=== PATIENT | male | born 1960 | race Caucasian/White ===

== ENCOUNTER 2023-01-06 15:24 | Emergency (ER) | payer BC, SELFPAY ==
[2023-01-06 15:26] VITALS: BP 170/92; PULSE 118; RESP 19; TEMP 37.2; O2SAT 98; BMI 31.5
--- NOTE | 2023-01-06 15:34 | HMH.EDGENADL ---
Discharge Plan Disposition Patient Disposition: Home, Self-Care Prescriptions Prescriptions: New rosuvastatin 5 mg tablet 5 mg PO DAILY 30 Days Qty: 30 0RF aspirin [Adult Aspirin Regimen] 81 mg tablet,delayed release (DR/EC) 81 mg PO DAILY 30 Days Qty: 30 0RF clopidogrel [Plavix] 75 mg tablet 75 mg PO DAILY 30 Days Qty: 30 0RF bisoprolol fumarate 5 mg tablet 5 mg PO DAILY 30 Days Qty: 30 0RF Referrals Follow up/Referrals: Adarsh Bashir MD [Staff Physician] - See instructions (carotid stenosis, per Dr Bashir 11amonday ) Provider,MD Ralph [Primary Care Provider] - See instructions Activity Restrictions/Add. Instructions Additional Instructions/Restrictions: Your symptoms today are most likely were secondary to compression neuropraxia using your crutches please mechanically offload those using significant cushioning or keeping your armpits away from the crutches when using them. However on your CT scans of the blood vessels in your head and neck there is severe internal carotid artery stenosis bilaterally noted. It is unclear whether not these are associated with any type of causation of your symptoms today therefore in an abundance of caution we will treat as if this was a TIA with dual antiplatelet therapy with aspirin and Plavix also will add a statin and a beta-jessica onto your medication therapy. I discussed the case with Dr. Bashir her faith doctor who will see you at 11 AM at his clinic on Monday. You likely will need referral to a neurosurgeon for further discussion but this will be done in consultation with Dr. Bashir as he will manage this from here on out. If you have any recurrence of neurologic symptoms please go to the nearest emergency department. Clinical Impressions Clinical Impression: Carotid artery stenosis, Arm paresthesia, left, Neurapraxia of left upper extremity Discharge ED Provider: Josh Truong General Adult HPI General Chief complaint: Neuro Symptoms/Deficit Stated complaint: post op 01/03 knee surgery Time Seen by Provider: 01/06/23 15:34 History of Present Illness HPI narrative: Patient is a 62-year-old recently status post total knee replacement done in [facility] but has had significant side effects from the surgery that were out of proportion to total knee replacement that he had done in the past making him worried. States that he has had increased swelling of his left lower extremity that is been worse than his other leg that he experiences also has had some ecchymosis in the proximal thigh. Most concerning Augustine though he stated that he had some tingling around his lips and some paresthesias in his left upper extremities associated with some transient motor weakness that only lasted seconds. When asked when this happens it is only when he is compressing his axilla with his crutches and immediately upon stopping using crutches within a few seconds these paresthesias and weakness go away. He has not had any hyperventilating or panic attack episodes. Denies any chest pain or shortness of breath. Denies any history of DVT or PE. Related Data Previous Rx's Medication Instructions Recorded aspirin 81 mg tablet,delayed 81 mg PO DAILY 30 days #30 tabs 01/06/23 release (Adult Aspirin Regimen) bisoprolol fumarate 5 mg tablet 5 mg PO DAILY 30 days #30 tabs 01/06/23 clopidogrel 75 mg tablet (Plavix) 75 mg PO DAILY 30 days #30 tabs 01/06/23 rosuvastatin 5 mg tablet 5 mg PO DAILY 30 days #30 tabs 01/06/23 Allergies Allergy/AdvReac Type Severity Reaction Status Date / Time No Known Allergies Allergy Verified 01/23/18 15:19 [facility] Disclaimer: The information contained in this section may have been updated after the patient was seen, as this information can be updated by other users. Social History Smoking Status: Never smoker alcohol intake: current substance use type: denies use current occupational status: employed Travel in the last 8 weeks
--- NOTE | 2023-01-06 15:38 | PC.NURSE ---
Dr. Truong at [facility]
--- NOTE | 2023-01-06 15:49 | PC.NURSE ---
Spoke with Hilda in vascular lab regarding doppler order.
--- NOTE | 2023-01-06 15:50 | CT_ITS ---
PROCEDURE INFORMATION: Exam: CT Head Without Contrast Exam date and time: 01/06/2023 4:38 PM Age: 62 years old Clinical indication: Other: Lue numbnesss; Additional info: Lue numbess, transient, lip tingling TECHNIQUE: Imaging protocol: Computed tomography of the head without contrast. Radiation optimization: All CT scans at this facility use at least one of these dose optimization techniques: automated exposure control; mA and/or kV adjustment per patient size (includes targeted exams where dose is matched to clinical indication); or iterative reconstruction. REPORTING DATA: Count of CT and Cardiac NM exams in prior 12 months: This patient has received 0 known CTs and 0 known cardiac nuclear medicine studies in the 12 months prior to the current study. COMPARISON: No relevant prior studies available. FINDINGS: Brain: Mild periventricular white matter disease. There is no area of intraparenchymal or extra-axial hemorrhage present. There is no focal mass. There is no midline shift. The butler-white matter junction is intact. Cerebral ventricles: No ventriculomegaly. Paranasal sinuses: Visualized sinuses are unremarkable. No fluid levels. Mastoid air cells: Visualized mastoid air cells are well aerated. Bones/joints: Unremarkable. No acute fracture. Soft tissues: The soft tissues are unremarkable. IMPRESSION: 1. Mild periventricular white matter disease. 2. Otherwise unremarkable examination of the brain. There is no acute intracranial abnormality.
--- NOTE | 2023-01-06 15:50 | CT_ITS ---
PROCEDURE INFORMATION: Exam: CTA Head With Contrast, Arteriography Exam date and time: 01/06/2023 4:42 PM Age: 62 years old Clinical indication: Numbness; Additional info: Lue numbess, transient, lip tingling TECHNIQUE: Imaging protocol: Computed tomographic angiography of the head with contrast. Exam focused on the arteries. 3D rendering (Not supervised by radiologist): MIP and/or 3D reconstructed images were created by the technologist. Radiation optimization: All CT scans at this facility use at least one of these dose optimization techniques: automated exposure control; mA and/or kV adjustment per patient size (includes targeted exams where dose is matched to clinical indication); or iterative reconstruction. Contrast material: ISOVUE; Contrast volume: 100 ml; Contrast route: INTRAVENOUS (IV); REPORTING DATA: Count of CT and Cardiac NM exams in prior 12 months: This patient has received 0 known CTs and 0 known cardiac nuclear medicine studies in the 12 months prior to the current study. COMPARISON: CT HEAD/BRAIN WO CON 01/06/2023 4:38 PM FINDINGS: ANTERIOR CIRCULATION: Right internal carotid artery: Atherosclerotic disease within the clinoid segment of the right-sided internal carotid artery that results in stenosis measuring 70%. There is good distal flow. There is no aneurysm. Right middle cerebral artery: No occlusion or significant stenosis. No aneurysm. Right anterior cerebral artery: No occlusion or significant stenosis. No aneurysm. Left internal carotid artery: Intracranial segment is patent with no significant stenosis. No aneurysm. Left middle cerebral artery: No occlusion or significant stenosis. No aneurysm. Left anterior cerebral artery: No occlusion or significant stenosis. No aneurysm. POSTERIOR CIRCULATION: Right vertebral artery: No occlusion or significant stenosis. No aneurysm. Left vertebral artery: No occlusion or significant stenosis. No aneurysm. Basilar artery: Mild narrowing of the proximal basilar artery with stenosis measuring up to 60%. There is good distal flow. Right posterior cerebral artery: No occlusion or significant stenosis. No aneurysm. Left posterior cerebral artery: No occlusion or significant stenosis. No aneurysm. Brain: No definite mass, mass effect, or midline shift. Cerebral ventricles: No ventriculomegaly. Bones/joints: Unremarkable. No acute fracture. Soft tissues: Unremarkable. IMPRESSION: 1. Severe atherosclerotic disease within right-sided clinoid segment of the right-sided internal carotid artery that results in stenosis measuring 70%. 2. Mild narrowing of the proximal basilar artery with stenosis measuring up to 60%. There is good distal flow. 3. The remainder of the vascular structures are unremarkable. There is no other significant stenosis. There is no occlusion or aneurysm.
--- NOTE | 2023-01-06 15:50 | CT_ITS ---
PROCEDURE INFORMATION: Exam: CTA Neck With Contrast Exam date and time: 01/06/2023 4:42 PM Age: 62 years old Clinical indication: Numbness; Additional info: Lue numbess, transient, lip tingling TECHNIQUE: Imaging protocol: Computed tomographic angiography of the neck with contrast. 3D rendering (Not supervised by radiologist): MIP and/or 3D reconstructed images were created by the technologist. Radiation optimization: All CT scans at this facility use at least one of these dose optimization techniques: automated exposure control; mA and/or kV adjustment per patient size (includes targeted exams where dose is matched to clinical indication); or iterative reconstruction. Contrast material: ISOVUE; Contrast volume: 100 ml; Contrast route: INTRAVENOUS (IV); REPORTING DATA: Count of CT and Cardiac NM exams in prior 12 months: This patient has received 0 known CTs and 0 known cardiac nuclear medicine studies in the 12 months prior to the current study. COMPARISON: CT HEAD/BRAIN WO CON 01/06/2023 4:38 PM FINDINGS: Right common carotid artery: No stenosis. No dissection or occlusion. Right internal carotid artery: Severe atherosclerotic disease of the right sided internal carotid artery bulb with stenosis measuring 80%. There is good distal flow. Right external carotid artery: No occlusion or stenosis of the origin. Left common carotid artery: No stenosis. No dissection or occlusion. Left internal carotid artery: Atherosclerotic disease of the left sided internal carotid bulb the results in stenosis measuring 70%. There is good distal flow. Left external carotid artery: No occlusion or stenosis of the origin. Right vertebral artery: No stenosis. No dissection or occlusion. Left vertebral artery: No stenosis. No dissection or occlusion. Soft tissues: Normal. No significant soft tissue swelling. Bones/joints: No acute fracture. IMPRESSION: 1. Severe atherosclerotic disease of the right sided internal carotid artery bulb with stenosis measuring 80%. There is good distal flow. 2. Atherosclerotic disease of the left sided internal carotid bulb the results in stenosis measuring 70%. There is good distal flow. 3. The remainder of the vascular structures are unremarkable. There is no other significant stenosis. There is no occlusion or aneurysm. REFERENCES: NASCET CRITERIA. The degree of stenosis in the cervical segment of the internal carotid artery is based on NASCET criteria. Normal is no stenosis. Mild is less than 50% stenosis. Moderate is 50-69% stenosis. Severe is 70% to 99% stenosis. Total occlusion is no detectable patent lumen.
--- NOTE | 2023-01-06 15:50 | CA_ITS ---
FINAL REPORT TECHNIQUE: Ultrasound images of the deep venous system were obtained from the left groin to the calf veins. CLINICAL HISTORY: recent surgery swelling Left knee swelling s/p Left total knee replacement rajwinder 3 days ago FINDINGS: The deep venous system is normally compressible. Normal flow is identified. IMPRESSION: No evidence of left lower extremity DVT. Reviewed, Interpreted and Dictated by Papo Thurman MD Transcribed by Nyla Dutton Authenticated and [facility]
--- NOTE | 2023-01-06 15:56 | ECG_ITS ---
APPROVED REPORT Exam: Resting ECG HR:103 bpm ECG Measurements Heart Rate 103 AXES VA 187 P 32 QRSd 94 QRS 48 QT 315 T 41 QTc 375 Conclusion SINUS TACHYCARDIA ABNORMAL RHYTHM ECG UNCONFIRMED REPORT Electronically signed by : Sage Loo MD 01/07/2023 06:59:23
--- NOTE | 2023-01-06 15:58 | PC.NURSE ---
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
[2023-01-06 16:00] VITALS: BP 176/93; PULSE 96; RESP 15; O2SAT 99
[2023-01-06 16:10] LABS: Basophils % 0.1 % (0.1-2.0); Eosinophils % 0.3 % (0.1-12.0); Hematocrit 34.8 % (42.0-52.0); Hemoglobin 11.6 g/dL (14.1-18.0); Lymphocytes # 1.3 K/mm3 (0.7-4.5); Lymphocytes % 13.8 % (10-50); Mean Corpuscular HGB Conc 33.3 g/dL (31.8-35.4); Mean Corpuscular Hemoglobin 30.8 pg (27.0-31.2); Mean Corpuscular Volume 92.4 fl (80-94); Mean Platelet Volume 8.3 fl (7.4-10.4); Monocytes # 0.7 K/mm3 (0.1-1.0); Monocytes % 7.2 % (1.7-9.3); Neutrophils # 7.6 K/mm3 (1.8-7.8); Neutrophils % 78.6 % (37.0-80.0); Platelet Count 166 K/mm3 (142-424); Red Blood Count 3.77 M/mm3 (4.60-6.20); Red Cell Distribution Width 12.8 % (11.5-17.5); White Blood Count 9.7 K/mm3 (4.8-10.8)
[2023-01-06 16:14] LABS: Chloride 97 mmol/L (98-107); Potassium 3.7 mmoL/L (3.5-5.1); Sodium 134 mmol/L (136-145)
[2023-01-06 16:17] LABS: Alanine Aminotransferase 27 U/L (12-78); Albumin Level 3.7 g/dl (3.5-5.0); Albumin/Globulin Ratio 1.1 (1.1-1.8); Alkaline Phosphatase 60 U/L (38-126); Anion Gap 10.7 mEq/L (5-15); Aspartate Amino Transferase 36 U/L (17-59); Bilirubin,Total 0.6 mg/dl (0.2-1.3); Blood Urea Nitrogen 11 mg/dl (9-20); Carbon Dioxide 30 mmol/L (22.0-30.0); Creatinine Clearance Estimated 105 mL/min (50-200); Estimated Glomerular Filt Rate 136 ml/min (>60); GFR (African American) 164 ML/MIN (>60); Globulin 3.3 g/dL (1.3-3.2)
[2023-01-06 16:18] LABS: Calcium 8.4 mg/dl (8.4-10.2); Glucose 150 mg/dl (74-100)
--- NOTE | 2023-01-06 16:23 | PC.NURSE ---
patient given a urinal
--- NOTE | 2023-01-06 16:34 | PC.NURSE ---
PT GONE TO CT
[2023-01-06 17:01] VITALS: BP 166/88; PULSE 98; O2SAT 98
[2023-01-06 17:31] VITALS: BP 154/70; PULSE 96; O2SAT 97
[2023-01-06 18:01] VITALS: BP 215/103; PULSE 94; RESP 19; O2SAT 97
[2023-01-06 18:30] VITALS: BP 165/81; PULSE 102; RESP 20; TEMP 37.2; O2SAT 97
== END 2023-01-06 18:31 | disposition home or self-care (01) ==
PROVIDERS: Emergency Provider Student in an Organized Health Care Education/Training Program
DX: I65.21 Occlusion and stenosis of right carotid artery (principal); S44.92XA Injury of unspecified nerve at shoulder and upper arm level, left arm, initial encounter; M96.89 Other intraoperative and postprocedural complications and disorders of the musculoskeletal system; X58.XXXA Exposure to other specified factors, initial encounter; Y83.4 Other reconstructive surgery as the cause of abnormal reaction of the patient, or of later complication, without mention of misadventure at the time of the procedure
CPT/HCPCS: 70450; 70496; 70498; 80053; 85025; 93005; 93971; 96360; 99285; Q9967

== ENCOUNTER 2023-04-04 17:00 | Outpatient (RCR) | payer BC, SELFPAY ==
--- NOTE | 2023-01-04 10:26 | HMH.PTOPEV ---
PT Outpatient Evaluation Rehab PT Outpatient Evaluation Start: 01/04/23 09:33 Freq: Status: Active Protocol: Document 01/04/23 09:33 BONNY (Rec: 01/04/23 10:26 BONNY [id number]) E-signed By William Amador, PT Outpatient Therapy Subjective History Subjective History Pt presents s/p left TKA, sx. on 01/03/23. Pt reports global 'loopiness, dizziness, I feel really loosey goosey, and this time my thigh is really sore.' Pt reports having right TKA in 2014, 'and I don't remember it hurting this bad.' Pt reports left knee tightness, swelling, pain, and weakness. Chief Complaint Pain,Stiff,Swelling,Weakness Symptom Type Ache,Throb,Sharp,Dull Symptoms Relieved By Ice,OTC Meds,Prescription Meds Symptoms Aggravated By Standing,Walking Prior Functional Limitations None Current Functional Limitations Housework,Standing,Squatting, Walking,Stairs Symptom Description Constant but Variable Level of pain today (0-10) 8 Pain scale - at its best (0-10) 8 Pain scale - at its worst (0-10) 9 Hip/Knee Eval Gait Observation General Gait Pattern Observation Antalgic Gait,Wide Based Gait Assistive Device Assistive Devices Axillary Crutches Palpation Tenderness left Knee Palpation Finding Tenderness Knee Palpation Overall Comment 3-4/4 MMT Hip Flexion Strength Grade 4- Good- Hip Abduction Strength Grade 3+ Fair+ Hip Adduction Strength Grade 4- Good- Hip Extension Strength Grade 4- Good- Knee Extension Strength Grade 4- Good- Knee Flexion Strength Grade 4- Good- ROM Knee Flexion Active Range of Motion ( 3-105 degrees) Knee ROM Limitations Soft Tissue Tightness,Pain Outpatient Therapy Assessment Impairments Problems/Impairmments Palpation Tenderness,Impaired Range of Motion,Impaired Strength,Impaired Gait Pattern ,Impaired Walking,Impaired Standing,Impaired Household Care,Impaired Stair Climbing, Subjective C/O Pain,Impaired Self Care/Self Management Prognosis Rehab Potential Good Clinical Impression Consistent with Diagnosis Yes Short Term Goals Number of Weeks 4 Decreased Palpation Tenderness Yes: 1-2/4 left knee Increase Range of Motion Yes: 0
--- NOTE | 2023-02-06 12:54 | HMH.RHREAS ---
Rehab Reassessment Rehab OP Re-assessment Start: 01/04/23 09:33 Freq: Status: Active Protocol: Document 02/06/23 12:48 JADYN (Rec: 02/06/23 12:54 PHOANGEL [id number]) E-signed By Gilson Duenas, PT Rehab Re-assessment Subjective Subjective Pt reports current pain 3/10 in the L knee, at worst pain is 6/10. He remains concerned with edema in and around his L knee. Feels much better overall with ambulation ability, but wants to improve even more. Objective Objective Notes L Knee AROM: 0-123 L Knee PRM: 0-126 MMT L LE: grossly 4+/5 throughout Ambulation: Minimal antalgic gait pattern during stance phase of gait on the L LE, no use of AD at this time. Assessment Progress Assessment Progressing as Expected Assessment Notes Pt has shown significant improvements in strength and ROM of the L LE. He continues to have decreased ability with squatting, gait on an uneven surface, and overall strength of the L LE. ROM is WFL at this time, but pt goal is to increase even more to WNL. He continues to need skilled intervention to return to prior level of function. Patient goals met ST,2,3,4,5,6,7,8 Goals Not Met LT,2,3,4,5,6,7,8,9,10,11 Revised Goals none Plan Plan Continue per initial POC. Frequency of Therapy 2 x/wk Duration of therapy 4 wks Time and Billing Re-Eval Time 16 Re-Eval Billing Units 1 PHYSICIAN CERTIFICATION: I certify the specified therapy services for Ramírez Knight are required, authorized, and reviewed every 30 days.
--- NOTE | 2023-03-07 11:25 | HMH.RHREAS ---
Rehab Reassessment Rehab OP Re-assessment Start: 01/04/23 09:33 Freq: Status: Active Protocol: Document 03/07/23 11:17 MATTIEHAWA (Rec: 03/07/23 11:25 BONNY [id number]) E-signed By William Amador, PT Rehab Re-assessment Subjective Subjective Pt reports lingering lateral aspect left knee pain/ discomfort anne-marie. at end ROM flx . Pt reports significant functional improvements since last reassess., including strength, gait pattern and endurance, and ROm. Objective Objective Notes AROM: LEFT KNEE FLX 0-131 MMT: LEFT HIP ABD 4-4+/5, L HIP EXT 4/5, L HIP ADD AND FLX 4+-5/5, L KNEE EXT 5/5, L HS 5/5 GAIT: SLIGHTLY FLXED(3-5) ON LLE DURING STANCE PHASE OF GAIT PATTERN-MILDLY ANTALGIC ON LLE TTP: LEFT KNEE 0/4 GLOBALLY Assessment Progress Assessment Progressing as Expected Assessment Notes SIGNFICANT IMPROVEMENTS IN STRENGTH, ROM, TTP Patient goals met ST,2,3,4,5,6,7,8 LT,2,5,6,7,8,9,10,11 Goals Not Met LTG'S 3,4 Plan Plan Pt to continue w/skilled P.T. to make further improvements in left knee gait and strength to allow for optimal function Frequency of Therapy 1-2X/WK Duration of therapy 2-4WKS Time and Billing Re-Eval Time 12 Re-Eval Billing Units 1 PHYSICIAN CERTIFICATION: I certify the specified therapy services for Ramírez Knight are required, authorized, and reviewed every 30 days.
== END 2023-04-04 17:05 | disposition home or self-care (01) ==
LOC: PT 17:00
PROVIDERS: Visit Provider Orthopaedic Surgery
DX: M25.562 Pain in left knee (principal); Z96.652 Presence of left artificial knee joint
CPT/HCPCS: 97010; 97014; 97016; 97110; 97140; 97163; 97164; 97530; 97535; G0283

== ENCOUNTER 2024-04-17 10:18 | Outpatient (CLI) | payer BC, SELFPAY ==
--- NOTE | 2024-04-17 10:45 | ECG_ITS ---
APPROVED REPORT Exam: Resting ECG HR:91 bpm ECG Measurements Heart Rate 91 AXES DE 170 P 47 QRSd 103 QRS 21 QT 326 T 47 QTc 374 Conclusion SINUS RHYTHM NORMAL ECG UNCONFIRMED REPORT Electronically signed by : Sage Loo MD 04/18/2024 17:17:25
[2024-04-17 11:01] LABS: Basophils % 0.6 % (0.1-2.0); Eosinophils % 0.2 % (0.1-12.0); Hematocrit 45.8 % (42.0-52.0); Hemoglobin 14.8 g/dL (14.1-18.0); Lymphocytes # 0.8 K/mm3 (0.7-4.5); Lymphocytes % 15.7 % (10-50); Mean Corpuscular HGB Conc 32.2 g/dL (31.8-35.4); Mean Corpuscular Hemoglobin 31.9 pg (27.0-31.2); Mean Corpuscular Volume 99.1 fl (80-94); Mean Platelet Volume 8.1 fl (7.4-10.4); Monocytes # 0.4 K/mm3 (0.1-1.0); Monocytes % 8.1 % (1.7-9.3); Neutrophils # 3.8 K/mm3 (1.8-7.8); Neutrophils % 75.5 % (37.0-80.0); Platelet Count 209 K/mm3 (142-424); Red Blood Count 4.62 M/mm3 (4.60-6.20); Red Cell Distribution Width 13.6 % (11.5-17.5)
[2024-04-17 11:15] LABS: Chloride 100 mmol/L (98-107); Sodium 135 mmol/L (136-145)
[2024-04-17 11:16] LABS: Potassium 4.2 mmoL/L (3.5-5.1)
[2024-04-17 11:18] LABS: Blood Urea Nitrogen 16 mg/dl (9-20); Estimated Glomerular Filt Rate 85 ml/min (>60); GFR (African American) 102 ML/MIN (>60)
[2024-04-17 11:19] LABS: Anion Gap 7.2 mEq/L (5-15); Calcium 8.9 mg/dl (8.4-10.2); Carbon Dioxide 32 mmol/L (22.0-30.0); Glucose 116 mg/dl (74-100); Hemoglobin A1C 5.9 % (4.0-6.0)
== END 2024-04-17 23:59 | disposition home or self-care (01) ==
LOC: RT 10:20
PROVIDERS: Visit Provider Orthopaedic Surgery
DX: Z01.818 Encounter for other preprocedural examination (principal); R73.09 Other abnormal glucose; Z87.898 Personal history of other specified conditions
CPT/HCPCS: 36415; 80048; 83036; 85025; 93005

== ENCOUNTER 2025-02-17 10:00 | Outpatient (CLI) | payer BC, SELFPAY ==
[2025-02-17 15:05] LABS: Coronavirus 19, PCR Not Detected (NotDetected); Influenza A, PCR Not Detected (NotDetected); Influenza B, PCR Not Detected (NotDetected)
--- OUTSIDE RECORDS SUMMARY | 2025-02-18 10:00 | XMS_ITS | Encounter Summary ---
Author Organization Healthcare Address [address] [place] [address] Care Team Providers Care Burrer Machine Name Role Phone Pcp, No Primary Care Provider Unavailabl e Reason for Visit * Reason Comments Consult Encounter Details Date Type Department Care Team (Late st Contact Info) Description 02/18/2025 10:00 AM EDT Office Visit [facility] [address] [place] [address] Julian Keane MD [address] [place] [address] Left shoulder pain, unspecified chronicity (Primary Dx) Social History Tobacco Use Types Packs/Day Years Used Date Smoking Tobacco: Never Smokeless Tobacco: Never Tobacco Cessation:Counseling Given: Not Answered Alcohol Use Standard Drinks/Week Comments Yes 4 (1 standard drink = 0.6 oz pur e alcohol) Sex and Gender Information Value Date Recorded Sex Assigned at Not on file Legal Sex Male 8:11 PM EDT Gender Identity Not on file Sexual Orientation Not on file documented as of this encounter Last Filed Vital Signs Vital Sign Reading Time Taken Comments Blood Pressure 144/68 02/18/2025 10:10 AM EDT Pulse 103 02/18/2025 10:10 AM EDT Temperature 37 C (98.6 F) 02/18/2025 10:10 AM EDT Respiratory Rate - - Oxygen Saturation 99% 02/18/2025 10:10 AM EDT Inhaled Oxygen Concentration - - Weight 77.1 kg (170 lb) 02/18/2025 10:10 AM EDT Height 170.2 cm (5' 7 ) 02/18/2025 10:10 AM EDT Body Mass Index 26.63 02/18/2025 10:10 AM EDT documented in this encounter Plan of Treatment Upcoming Encounters Date Type Department Care Team (Latest Contact Info) Description 02/18/2025 10:15 AM EDT Hospital Encounter [facility] [address] [place] [address] Left shoulder pain, unspecified chronicity documented as of this encounter Results * XR Shoulder Left 2+ Views (02/18/2025 10:36 AM EDT) Anatomical Region Laterality Modality Upper Extremities, Shoulder Left Digi jacqueline Radiography Impressions 02/18/2025 10:52 AM EDT Degenerative changes as described. No acute bony findings. CRITICAL RESULT: No. COMMUNICATION: Per this written report. Drafted by Kimo Hannah MD on 02/18/2025 10:51 AM Final report signed by Kimo Hannah MD on 02/18/2025 10:52 AM Narrative 02/18/2025 10:52 AM EDT CLINICAL INDICATION: pain TECHNIQUE: XR SHOULDER LEFT 2+ VIEWS COMPARISON: None. FINDINGS: Imaged chest is unremarkable. Enthesopathy of the greater tuberosity with cystic change. Mild to moderate glenohumeral and mild AC joint space narrowing with osteophytosis. No fracture or dislocation. Procedure Note Kimo Hannah MD - 02/18/2025 CLINICAL INDICATION: pain TECHNIQUE: XR SHOULDER LEFT 2+ VIEWS COMPARISON: None. FINDINGS: Imaged chest is unremarkable. Enthesopathy of the greater tuberosity withcystic change. Mild to moderate glenohumeral and mild AC joint spacenarrowing with osteophytosis. No fracture or dislocation. IMPRESSION: Degenerative changes as described. No acute bony findings. CRITICAL RESULT: No. COMMUNICATION: Per this written report. Drafted by Kimo Hannah MD on 02/18/2025 10:51 AM Final report signed by Kimo Hannah MD on 02/18/2025 10:52 AM Julian Keane MD IMG XR PROCEDURES Final Resu lt documented in this encounter Visit Diagnoses Diagnosis Left shoulder pain, unspecified chronicity- Primary Left shoulder pain, unspecified chronicity documented in this encounter Additional Health Concerns Assessment Noted Time A fall risk assessment has been complete d for the patient 02/18/2025 10:09 AM EDT documented as of this encounter Care Teams Burrer Machine Relationship Specialty Start Date End Date Pcp, [place]ic [place] [place] [address] PCP - General Family Medicine 02/06/25 documented as of this encounter
--- OUTSIDE RECORDS SUMMARY | 2025-02-18 10:15 | XMS_ITS | Encounter Summary ---
Author Organization Healthcare Address [address] [place] [address] Care Team Providers Care Imaging Account Manager Name Role Phone Pcp, No Primary Care Provider Unavailabl e Encounter Details Date Type Department Care Team (Latest Contact Info) Description 02/18/2025 10:15 AM EDT Hospital Encounter [facility] [address] [place] [address] Left shoulder pain, unspecified chronicity Social History [...] on file documented as of this encounter Plan of [...] documented as of this encounter Care Teams Imaging Account Manager Relationship Specialty Start Date End Date Pcp, Angelic [address] [place] [address] PCP - General Family Medicine 02/06/25 documented as of this encounter
--- OUTSIDE RECORDS SUMMARY | 2025-02-18 11:11 | XMS_ITS | Encounter Summary ---
Author Organization Healthcare Address [address] [place] [address] Care Team Providers Care Forest Fire Equipment Operator Name Role Phone Pcp, No Primary Care Provider Unavailabl e Encounter Details Date Type Department Care Team (Latest Contact Info) Description 02/18/2025 Travel Social History Tobacco Use Types Packs/Day Years [...] as of this encounter Plan of Treatment Upcoming Encounters Date Type Department Care Team (Latest Contact Info) Description 02/18/2025 10:15 AM EDT Hospital Encounter [facility] [address] [place] [address] Left shoulder pain, unspecified chronicity documented as of this encounter Visit Diagnoses Not on filedocumented in this encounter Additional Health Concerns Assessment Noted Time A fall risk assessment has been complete d for the patient 02/18/2025 10:09 AM EDT documented as of this encounter Care Teams Forest Fire Equipment Operator Relationship Specialty Start Date End Date Pcp, No [address] [place] [address] PCP - General Family Medicine 02/06/25 documented as of this encounter
--- OUTSIDE RECORDS SUMMARY | 2025-02-18 11:11 | XMS_ITS | Clinical Summary ---
Author Organization Healthcare Address [address] [place] [address] Care Team Providers Care Circular Distributor Name Role Phone Pcp, No Primary Care Provider Unavailabl e Allergies No known active allergies Medications acetaminophen (Tylenol) 500 MG tablet Take 2 tablets by mouth every 6 hours as needed. Active ibuprofen 600 MG tablet Take by mouth every 6 hours as needed for mild pain. Active Encounters Date Type Department Care Team Description 02/18/2025 10:15 AM EDT Hospital Encounter [facility] Radiology [address] [place] [address] Left shoulder pain, unspecified chronicity 02/18/2025 10:00 AM EDT Office Visit [facility] Orthopaedic Surgery & Sports Medicine [address] [place] [address] Julian Keane MD Left shoulder pain, unspecified chronicity (Primary Dx) 02/18/2025 Travel 02/11/2025 Travel from Last 3 Months Social History Tobacco Use Types Packs/Day Years [...] on file Sexual Orientation Not on file Last Filed Vital Signs Vital Sign Reading [...] Mass Index 26.63 02/18/2025 10:10 AM EDT Plan of Treatment Upcoming Encounters Date Type Department Care Team (Latest Contact Info) Description 02/18/2025 10:15 AM EDT Hospital Encounter [facility] [address] [place] [address] Left shoulder pain, unspecified chronicity Health Maintenance Due Date Last Done Comments [facility]-Depression Screening 1960 [facility]-Hepatitis C Screening 1960 [facility]-Infant/Child/Adol SDOH Screenings 1960 [facility]-Obesity Intervention 1964 [facility]- SDOH Screenings 1976 [facility]-Adult SDOH Screenings 1976 [facility]-DTaP,Tdap,and Td Vaccine s (1 - Tdap) 1977 CT Colonography 11/26/2003 Colonoscopy 11/26/2003 FIT-DNA 11/26/2003 FIT 11/26/2003 FOBT 11/26/2003 Sigmoidoscopy 11/26/2003 [facility]-Colorectal Cancer Screening 11/26/2003 [facility]-Pneumococcal Vaccine: 50 + Years (1 of 1 - PCV) 2008 [facility]-Zoster Vaccines (1 of 2) 2008 [id number] Vaccine (1 - 20 24-25 season) 2024 [facility]-Influenza Vaccine (#1) 2025 [facility]-RSV Vaccine: 60+ Years o r (1 - 1-dose 75+ series) 2033 HPV Vaccines Aged Out No longer eligi ble based on patient's age to complete this topic [facility]-HIB Vaccines Aged Out No longer e ligible based on patient's age to complete this topic [facility]-Hepatitis A Vaccines Aged Out No longer eligible based on patient's age to complete this topic [facility]-IPV Vaccines Aged Out No longer e ligible based on patient's age to complete this topic [facility]-Rotavirus Vaccines Aged Out No lo nger eligible based on patient's age to complete this topic Procedures Procedure Name Priority Date/Time Associated Diagnosis Comments XR SHOULDER LEFT 2+ VIEWS Routine 02/18/2025 10:36 AM EDT Left shoulder pain, unspecified chronicity from Last 3 Months Results * XR Shoulder Left 2+ Views [...] Kimo Hannah MD on 02/18/2025 10:52 AM us Julian Keane MD IMG XR PROCEDURES Final Resu lt from Last 3 Months Insurance MEDICARE Care Teams Circular Distributor Relationship Specialty Start Date End Date Pcp, [place] [address] PCP - General Family Medicine 02/06/25
--- OUTSIDE RECORDS SUMMARY | 2025-02-18 11:11 | XMS_ITS | Encounter Summary ---
Author Organization Healthcare Address [address] [place] [address] Care Team Providers Care Insurance Agents Supervisor Name Role Phone Pcp, No Primary Care Provider Unavailabl e Encounter Details Date Type Department Care Team (Latest Contact Info) Description 02/11/2025 Travel Social History Tobacco Use Types Packs/Day Years Used Date Smoking Tobacco: Never Assessed Sex and Gender Information Value Date Recorded Sex Assigned at Not on file Legal Sex Male 8:11 PM EDT Gender Identity Not on file Sexual Orientation Not on file documented as of this encounter Plan of Treatment Upcoming Encounters Date Type Department Care Team (Latest Contact Info) Description 02/18/2025 10:15 AM EDT Hospital Encounter [facility] [address] [place] [address] Left shoulder pain, unspecified chronicity documented as of this encounter Visit Diagnoses Not on filedocumented in this encounter Care Teams Insurance Agents Supervisor Relationship Specialty Start Date End Date Pcp, Angelic [address] [place] [address] PCP - General Family Medicine 02/06/25 documented as of this encounter
--- OUTSIDE RECORDS SUMMARY | 2025-02-18 11:11 | XMS_ITS | Referral Summary ---
Author Organization [facility] Address [address] [place] [address] Phone Care Team Providers Care Air Filler Name Role Phone Pcp, Radha MARTINS Primary Care Provider [phone] Social History Tobacco Use Types Packs/Day Years Used Date Smoking Tobacco: Never Assessed Sex and Gender Information Value Date Recorded Sex Assigned at Not on file Legal Sex Male 4:47 PM EDT Gender Identity Not on file Sexual Orientation Not on file Plan of Treatment Not on file Insurance T[place]ER [place] [id number] [employer]OSS ALL OTHERS NOT MEDICARE Care Teams Air Filler Relationship Specialty Start Date End Date PcpaRdha MD PCP - General Internal Medicine 01/29/15
--- OUTSIDE RECORDS SUMMARY | 2025-02-18 11:11 | XMS_ITS | Clinical Summary ---
Author Organization [facility] Address [address] [place] [address] Phone Care Team Providers Care Wrecking Supervisor Name Role Phone Pcp, None MD Primary Care Provider [phone] Social History Tobacco Use Types Packs/Day Years Used Date Smoking Tobacco: Never Assessed Sex and Gender Information Value Date Recorded Sex Assigned at Not on file Legal Sex Male 4:47 PM EDT Gender Identity Not on file Sexual Orientation Not on file Plan of Treatment Health Maintenance Due Date Last Done Comments Hepatitis C Screening 1960 DTap,Tdap,and Td (1 - Tdap) 1969 Colonoscopy 11/26/2003 PSA YEARLY 2008 Pneumococcal 50+ (1 of 1 - PCV) 2008 Shingrix (#1) 2008 Influenza Vaccine (Season Ended) 2025 RSV Vaccine (60+ or ) (1 - 1-dose 75+ series) 2033 HPV Aged Out No longer eligi ble based on patient's age to complete this topic Meningococcal conjugate kailash nt 4 (MCV4) Aged Out No longer eligible b ased on patient's age to complete this topic RSV Immunization (<20 months) Aged Out No longer eligible based on patient's age to complete this topic Insurance [employer]UE CROSS ALL OTHERS NOT MEDICARE Member Subscriber Plan / Payer (Ef fective 2014-Present) Name:Ramírez Knight Jaquelin Relation to Subscriber:Self Name:Juan Knightest Jaquelin Payer ID:[id number] ([facility]) Type:Not on file Address: [facility] [id number] [place] [id number] Care Teams Wrecking Supervisor Relationship Specialty Start Date End Date Pcp, Radha, PCP - General Internal Medicine 01/29/15
--- OUTSIDE RECORDS SUMMARY | 2025-02-18 11:11 | XMS_ITS ---
Author Organization Unknown Medications Medication Instructions Effective Dates (start - stop) Status bisoprolol fumarate 5 MG Ora l Tablet [id number]:00:00.000+00:0 0 - Completed rosuvastatin calcium 5 MG Or al Tablet [id number]:00:00.000+00:0 0 - Completed oxycodone hydrochloride 5 MG Oral Tablet [id number]:00:00.000+00:0 0 - Completed meloxicam 15 MG Oral Tablet 202200:00:00.000+00:00 - Completed clopidogrel 75 MG Oral Tablet 27-01-0200:00:00.000+00:00 - Completed Patient Care team information Name Category Status Period Participants - - Proposed period not known -
--- OUTSIDE RECORDS SUMMARY | 2025-02-18 11:11 | XMS_ITS | Clinical Summary ---
Author Organization [facility] Address [address] [place] [address] Care Team Providers Care Rotor Coil Taper Name Role Phone Unavailable Primary Care Provider Unavailabl e Allergies No known active allergies Medications No known medications Active Problems Problem Noted Date Diagnosed Date S/P total knee arthroplasty, right 06/27/2019 Social History Tobacco Use Types Packs/Day Years Used Date Smoking Tobacco: Never Smokeless Tobacco: Never Alcohol Use Standard Drinks/Week Comments Yes 3 (1 standard drink = 0.6 oz pur e alcohol) Sex and Gender Information Value Date Recorded Sex Assigned at Not on file Legal Sex Male 11:07 AM EDT Gender Identity Not on file Sexual Orientation Not on file Last Filed Vital Signs Vital Sign Reading Time Taken Comments Blood Pressure 137/75 06/25/2019 3:52 PM EST Pulse 86 06/25/2019 3:52 PM EST Temperature 36.6 C (97.9 F) 01/27/2015 11:12 AM EDT Respiratory Rate 16 01/27/2015 11:12 AM EDT Oxygen Saturation 97% 01/27/2015 11:12 AM EDT Inhaled Oxygen Concentration - - Weight 79.4 kg (175 lb 0.7 oz) 06/25/2019 3:52 P M EST Height 170.2 cm (5' 7.01 ) 06/25/2019 3:52 PM ES T Body Mass Index 27.41 06/25/2019 3:52 PM EST Plan of Treatment Not on file Insurance BS Advance Directives Documents on File Type Date Recorded Patient Body Maker Expl anation ACP-Advance Directive 01/28/2015 7:39 PM * Full Code (Latest Code Status on File) Date Activated Date Inactivated Comments 01/26/2015 2:58 PM 01/27/2015 5:30 PM
== END 2025-02-17 23:59 | disposition home or self-care (01) ==
LOC: LAB.DROPOF 02-18 11:01
PROVIDERS: PCP Nurse Practitioner; Visit Provider Nurse Practitioner
DX: J02.9 Acute pharyngitis, unspecified (principal); R52 Pain, unspecified
CPT/HCPCS: 87631

== ENCOUNTER 2025-02-27 12:50 | Outpatient (CLI) | payer BC, SELFPAY ==
--- OUTSIDE RECORDS SUMMARY | 2025-02-18 10:00 | XMS_ITS | Encounter Summary ---
Author Organization Healthcare Address [address] [place] [address] Care Team Providers Care Chemical Process Analyst Name Role Phone Pcp, No Primary Care Provider Unavailabl e Reason for Referral * Imaging (Routine) - Pending Review Specialty Diagnoses / Procedures Referred By Manpreet t Referred To Contact Radiology Diagnoses Left shoulder pain, unspecified chronicity Procedures CT Shoulder Left wo IV Contrast Julian Keane MD [address] [address] Phone: tel: fax: Referral ID Status Reason Start Date Expiration Date V isits Requested Visits Authorized [id number] Pending Review 02/18/2025 08/20/2026 1 1 * Imaging (Routine) - Pending Review Specialty Diagnoses / Procedures Referred By Manpreet t Referred To Contact Radiology Diagnoses Left shoulder pain, unspecified chronicity Procedures CT Chest wo IV Contrast Julian Keane MD [address] [address] Phone: tel: fax: Referral ID Status Reason Start Date Expiration Date V isits Requested Visits Authorized [id number] Pending Review 02/18/2025 08/20/2026 1 1 Reason for Visit * Reason Comments Consult Encounter Details Date Type Department Care Team (Latest Contact Info) Description 02/18/2025 10:00 AM EDT Office Visit [facility] Orthopaedic Surgery & Sports Medicine [address] [place] [address] Julian Keane MD [address] [place] [id number] Anterior dislocation of left sternoclavicular joint, initial encounter (Primary Dx); Left shoulder pain, unspecified chronicity Social History Tobacco Use Types Packs/Day Years [...] 10:10 AM EDT documented in this encounter Miscellaneous Notes * Progress Notes - Cory Michele MD - 02/18/2025 10:00 AM EDT NEW PATIENT CONSULTATION - SHOULDER AND ELBOW CLINIC NAME: Ramírez Knight : 1960 DATE: 02/18/2025 Thank you for referring Ramírez Knight to my SHOULDER and ELBOW Clinic at the [facility], for clinical consultation of the shoulder ?? : Left sternoclavicular joint dislocation Plan : CT scan of the sternoclavicular and acromioclavicular joints, follow up after imaging CLINICAL HISTORY Patient Demographics: Ramírez Kinght is a 64 y.o. 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 He does not remember any specific inciting event or trauma to cause this to happen. It is nonpainful.Does not inhibit his motion. He denies any numbness or tingling in any extremity. He does have somecatching/popping near the coracoid process though this too is not necessarily painful. Patient is curious if this might cause him significant problems In the future and would like to be evaluated. NSAIDS Yes [] No [x] Physical Therapy Yes [] No [x] The remainder of the past medical history, drug history, and allergy history is listed in the clinic proforma. Smoking Yes [] No [x] Diabetes Yes [] No [x] Depression/Anxiety Yes [] No [x] Currently taking Opiod Medication Yes [] No [x] PHYSICAL EXAMINATION Pleasant patient in no obvious distress sitting in clinic. BMI is Body mass index is 26.63 kg/m??. Speech pattern and Voice character are normal Constitutional: Well developed. well nourished. Psychologic: mood is appropriate. appropriate affect. Head and Face: Normocephalic. No obvious deformities. External Ears Normal, no lesions or masses. Eyes: extraocular movements intact. Pulmonary: Non-labored respirations with equal bilateral chest rise. Cardiac: hemodynamically stable, well perfused, pink extremities Abdomen: non-tender, non-distended. Peripheral Vascular Exam: Pulses present with no edema Skin: Normal appearing without rashes or lesions. Neurologic: Orientation to person, place and time Musculoskeletal Exam: Obvious deformity of the left sternoclavicular joint, nontender to palpation there. Nontender to palpation of the bicipital groove, palpable popping/ clicking with shoulder range of motion while palpating just proximal and medial to the coracoid process. Minimally tender to palpation there. Otherwise normal range of motion of bilateral upper extremities, intact shoulder flexion, abduction, internal/ external rotation, elbow flexion/ extension, wrist flexion / extension. Sensation intact to light touch in the median, axillary, radial, and ulnar nerve distributions. Palpable radial pulses Radiology: My independent interpretation of radiographic testing shows: Mild glenohumeral and acromioclavicular arthritis otherwise no acute osseous abnormalities Notes reviewed: outside physician Results of tests reviewed: previous radiographs Differential diagnosis: sternoclavicular joint dislocation CONCLUSION and PLAN: Patient is a 64-year-old male with a left sternoclavicular anterior dislocation with no known acutecause. Patient Is nonpainful and has good range of motion in bilateral upper extremities. We discussed that in order to assess this injury further we will need to obtain imaging of it. The patient was in agreement. We will plan to obtain a CT scan of the sternoclavicular joint as well as the left AC joint to evaluated his mechanical symptoms of popping/clicking. All the patient's questions were answered and he is agreeable to this plan. We will see him back after obtain his CT scans. Left shoulder pain, unspecified chronicity Orders Placed This Encounter XR Shoulder Left 2+ Views CT Chest wo IV Contrast CT Shoulder Left wo IV Contrast Thank you for the kind referral to the Shoulder-Elbow clinic, Your sincerely, Riley Michele MD PGY-2, Orthopaedic Surgery [facility] Orthopaedic Trauma Service Pager: [phone] Orthopaedic Recon/Spine/Foot and Ankle Service Pager: [phone] Answers submitted by the patient for this visit: Shoulder Injury Questionnaire (Submitted on 02/11/2025) Chief Complaint: Shoulder injury Incident location: at the [place] Affected shoulder: left Incident occurred: more than 1 week ago Injury mechanism: unknown Pain quality: aching Radiates to: does not radiate Pain - numeric: 4/10 Pain severity: moderate muscle weakness: No numbness: No tingling: No Aggravating factors: nothing Treatments tried: nothing Improvement on treatment: no relief review of Systems (Submitted on 02/11/2025) fever: No Weight loss or gain: No diaphoresis: No fatigue: No appetite change: No hearing loss: No Nosebleeds: No postnasal drip: No Sore throat almost every day: No Ringing in the ears: No trouble swallowing: No Choking: No cough: No shortness of breath: No wheezing: No chest pain: No leg swelling: No palpitations: No Bruising or Bleeding easily: No polyuria: No Trouble starting or stopping urination: No dysuria: No hematuria: No urgency: No dizziness: No headaches: No syncope: No arthralgias: No back pain: No Swelling: No neck pain: No Seasonal Allergies: No Food Allergies: No itching: No Cosigned by Julian Keane MD at 02/19/2025 9:29 AM EDT Associated attestation - Julian Keane MD - 02/19/2025 9:29 AM EDT I saw and evaluated the patient with the resident/fellow. I discussed the case with the resident/fellow and agree with the findings and plan as documented. documented in this encounter Plan of Treatment Scheduled Orders Name Type Priority Associated Diagnoses Orde r Schedule CT Chest wo IV Contrast Imaging Routine Left shoulder pain, unspecified chronicity 1 Occurrences starting 02/18/2025 until 08/22/2026 CT Shoulder Left wo IV Contrast Imaging Routine Left shoulder pain, unspecified chronicity 1 Occurrences starting 02/18/2025 until 08/22/2026 documented as of this encounter Results * [...] documented in this encounter Visit Diagnoses Diagnosis Anterior dislocation of left sternoclavicular joint, initial encounter- Primary Left shoulder pain, unspecified chronicity Left shoulder pain, unspecified chronicity documented in this encounter Additional Health Concerns Assessment Noted Time A fall risk assessment has been complete d for the patient 02/18/2025 10:09 AM EDT A Body Mass Index follow-up plan has been documented for the patient 02/18/2025 11:54 AM EDT documented as of this encounter Care Teams Chemical Process Analyst Relationship Specialty Start Date End Date Pcp, Angelic Garc[address] [place] [address] PCP - General Family Medicine 02/06/25 documented as of this encounter
--- OUTSIDE RECORDS SUMMARY | 2025-02-18 10:15 | XMS_ITS | Encounter Summary ---
Author Organization Healthcare Address [address] [place] [address] Care Team Providers Care Hand Ornament Maker Name Role Phone Pcp, No Primary Care Provider Unavailabl e Encounter Details Date Type Department Care Team (Latest Contact Info) Description 02/18/2025 10:15 AM EDT - 02/18/2025 11:59 PM EDT Hospital Encounter [facility] Radiology [address], [address] [place] [address] Left shoulder pain, unspecified chronicity Discharge Disposition: Home or Self Care Social History Tobacco Use Types Packs/Day Years Used Date Smoking Tobacco: Never Smokeless Tobacco: Never Alcohol Use Standard Drinks/Week Comments Yes 4 (1 standard drink = 0.6 oz pur e alcohol) Sex and Gender Information Value Date Recorded Sex Assigned at Not on file Legal Sex Male 8:11 PM EDT Gender Identity Not on file Sexual Orientation Not on file documented as of this encounter Medications at Time of Discharge acetaminophen (Tylenol) 500 MG tablet Take 2 tablets by mouth every 6 hours as needed. ibuprofen 600 MG tablet Take by mouth every 6 hours as needed for mild pain. documented as of this encounter Plan of Treatment Not on file documented as of this encounter Procedures Procedure Name Priority Date/Time Associated Diagnosis Comments XR SHOULDER LEFT 2+ VIEWS Routine 02/18/2025 10:36 AM EDT Left shoulder pain, unspecified chronicity documented in this encounter Results * XR Shoulder Left [...] Visit Diagnoses Diagnosis Left shoulder pain, unspecified chronicity documented in this encounter Additional Health Concerns Assessment Noted Time A fall risk assessment has been complete d for the patient 02/18/2025 10:09 AM EDT A Body Mass Index follow-up plan has been documented for the patient 02/18/2025 11:54 AM EDT documented as of this encounter Care Teams Hand Ornament Maker Relationship Specialty Start Date End Date Pcp, Angelic [address] [place] [address] PCP - General Family Medicine 02/06/25 documented as of this encounter
[2025-02-27 13:12] LABS: Microscopic, Urine URINE MICROSCOPIC (MICROSCOPIC)
[2025-02-27 13:47] LABS: Hematocrit 42.3 % (42.0-52.0); Hemoglobin 14.5 g/dL (14.1-18.0); Immature Granulocytes % 0.2 %; Mean Corpuscular HGB Conc 34.3 g/dL (31.8-35.4); Mean Corpuscular Hemoglobin 30.8 pg (27.0-31.2); Mean Corpuscular Volume 89.8 fl (80-94); Nucleated Red Blood Cells % 0 %; Platelet Count 250 K/mm3 (142-424); Red Blood Count 4.71 M/mm3 (4.60-6.20); Red Cell Distribution Width-SD 39.3 fL; White Blood Count 4.1 K/mm3 (4.8-10.8)
[2025-02-27 14:02] LABS: Bilirubin,Urine Negative (Negative); Color,Urine YELLOW (Yellow); Glucose,Urine (UA) Negative (Negative); Ketones,Urine Negative (Negative); Leukocyte Esterase,Urine Negative (Negative); PH,Urine 5.5 (5.0-8.5); Protein,Urine Negative (Negative); Specific Gravity, Urine 1.025 (1.005-1.030); Urobilinogen,Urine 0.2 EU/dl (0.2)
[2025-02-27 14:17] LABS: Albumin Level 4.5 g/dl (3.5-5.0); Chloride 99 mmol/L (98-107); Potassium 4.6 mmoL/L (3.5-5.1); Sodium 134 mmol/L (136-145)
[2025-02-27 14:20] LABS: Alanine Aminotransferase 44 U/L (12-78); Albumin/Globulin Ratio 1.5 (1.1-1.8); Alkaline Phosphatase 91 U/L (38-126); Anion Gap 10.6 mEq/L (5-15); Aspartate Amino Transferase 42 U/L (17-59); Bilirubin,Total 0.5 mg/dl (0.2-1.3); Blood Urea Nitrogen 14 mg/dl (9-20); Carbon Dioxide 29 mmol/L (22.0-30.0); Cholesterol 190 mg/dl (140-200); Creatinine,Serum 0.60 mg/dl (0.66-1.25); Estimated Glomerular Filt Rate 135 ml/min (>60); GFR (African American) 163 ML/MIN (>60); Globulin 3.0 g/dL (1.3-3.2); Iron 130 ug/dL (49-181); Total Protein,Serum 7.5 g/dl (6.3-8.2); Triglycerides 64 mg/dl (30-150)
[2025-02-27 14:21] LABS: Calcium 9.3 mg/dl (8.4-10.2); Glucose 95 mg/dl (74-100); HDL Cholesterol 54 mg/dl (40-60)
[2025-02-27 14:31] LABS: Total Iron Binding Capacity 303 ug/dL (261-462)
[2025-02-27 14:40] LABS: Free T4 (Free Thyroxine) 1.23 ng/dl (0.78-2.19)
[2025-02-27 14:54] LABS: Thyroid Stimulating Hormone 1.08 uIU/mL (0.465-4.68)
[2025-02-27 14:57] LABS: Ferritin 326 ng/ml (17.9-464)
[2025-02-27 15:13] LABS: Hepatitis C Ab Qual. W/ RFX NEGATIVE (Negative)
[2025-02-27 15:31] LABS: 25-OH Vitamin D, Total 27.0 ng/mL (30-100)
[2025-02-27 15:44] LABS: Vitamin B12 640 pg/mL (239-931)
[2025-02-28 08:14] LABS: Testosterone,Total 958 ng/dL (264-916)
--- OUTSIDE RECORDS SUMMARY | 2025-03-03 12:56 | XMS_ITS | Referral Summary ---
Author Organization [facility] Address [address] [place] [address] Phone Care Team Providers Care Hearing Aid Technician Name Role Phone Pcp, Radha MARTINS Primary Care Provider [phone] Social History Tobacco Use Types Packs/Day Years Used Date Smoking Tobacco: Never Assessed Sex and Gender Information Value Date Recorded Sex Assigned at Not on file Legal Sex Male 4:47 PM EDT Gender Identity Not on file Sexual Orientation Not on file Plan of Treatment Not on file Insurance [place]ER L[place]NN [id number] [employer]ITH[employer]OSS ALL OTHERS NOT MEDICARE Care Teams Hearing Aid Technician Relationship Specialty Start Date End Date PcpRadha MD PCP - General Internal Medicine 01/29/15
--- OUTSIDE RECORDS SUMMARY | 2025-03-03 12:56 | XMS_ITS | Clinical Summary ---
Author Organization [facility] Address [address] [place] [address] Phone Care Team Providers Care Plush Brusher Name Role Phone Pcp, None MD Primary Care Provider [phone] Social History Tobacco Use Types Packs/Day Years [...] PCV) 2008 Shingrix (#1) 2008 Influenza Vaccine (#1) 2025 RSV Vaccine (60+ or ) (1 [...] to Subscriber:Self Name:Juan Knightest Jaquelin Payer ID:[id number] ([facility]) Type:Not on file Address: [facility] [address] [place] [id number] Care Teams Plush Brusher Relationship Specialty Start Date End Date Pcp, Radha, PCP - General Internal Medicine 01/29/15
--- OUTSIDE RECORDS SUMMARY | 2025-03-03 12:56 | XMS_ITS | Clinical Summary ---
Author Organization Healthcare Address [address] [place] [address] Care Team Providers Care Family Coach Name Role Phone Pcp, No Primary Care Provider Unavailabl e Allergies No known active allergies Medications acetaminophen (Tylenol) 500 MG tablet Take 2 tablets by mouth every 6 hours as needed. Active ibuprofen 600 MG tablet Take by mouth every 6 hours as needed for mild pain. Active Encounters Date Type Department Care Team Description 02/18/2025 10:15 AM EDT - 02/18/2025 11:59 PM EDT Hospital Encounter [facility] Radiology [address] [place] [address] Left shoulder pain, unspecified chronicity Discharge Disposition: Home or Self Care 02/18/2025 10:00 AM EDT Office Visit [facility] Orthopaedic Surgery & Sports Medicine [address] [place] [address] Julian Keane MD Anterior dislocation of left sternoclavicular joint, initial encounter (Primary Dx); Left shoulder pain, unspecified chronicity 02/18/2025 Travel 02/11/2025 Travel from Last 3 [...] 02/18/2025 10:10 AM EDT Plan of Treatment Health Maintenance Due Date Last Done Comments [facility]-Depression Screening 1958 [facility]-Hepatitis C Screening 1958 [facility]-Infant/Child/Adol SDOH Screenings 1958 [facility]- SDOH Screenings 1976 [facility]-Adult SDOH Screenings 1976 [facility]-DTaP,Tdap,and Td Vaccine s (1 - Tdap) 1977 CT Colonography 11/26/2003 Colonoscopy 11/26/2003 FIT-DNA 11/26/2003 FIT 11/26/2003 FOBT 11/26/2003 Sigmoidoscopy 11/26/2003 [facility]-Colorectal Cancer Screening 11/26/2003 [facility]-Pneumococcal Vaccine: 50 + Years (1 of 1 - PCV) 2008 [facility]-Zoster Vaccines (1 of 2) 2008 QTO-FJOWF-30 Vaccine (1 - 20 24-25 season) 2024 [facility]-Influenza Vaccine (#1) 2025 [facility]-RSV Vaccine: 60+ Years o r (1 - 1-dose 75+ series) 2033 [facility]-Obesity Intervention Completed 02/18/2025 HPV Vaccines Aged Out No longer eligi [...] Resu lt from Last 3 Months [place] [address] Care Teams Family Coach Relationship Specialty Start Date End Date Pcp, Angelic [place] [place] [address] PCP - General Family Medicine 02/06/25
--- OUTSIDE RECORDS SUMMARY | 2025-03-03 12:56 | XMS_ITS | Clinical Summary ---
Author Organization [facility] Address [address], [address] [place] [address] Care Team Providers Care Food Stylist Name Role Phone Unavailable Primary Care Provider [...] Documents on File Type Date Recorded Patient Manufacturing Director Expl anation ACP-Advance Directive 01/28/2015 7:39 PM * Full Code (Latest Code Status on File) Date Activated Date Inactivated Comments 01/26/2015 2:58 PM 01/27/2015 5:30 PM
--- OUTSIDE RECORDS SUMMARY | 2025-03-03 12:56 | XMS_ITS | Encounter Summary ---
Author Organization Healthcare Address [address] [place] [address] Care Team Providers Care Glaze Supervisor Name Role Phone Pcp, No Primary [...] on file documented as of this encounter Visit Diagnoses Not on filedocumented in this encounter Additional Health Concerns Assessment Noted Time A fall risk assessment has been complete d for the patient 02/18/2025 10:09 AM EDT A Body Mass Index follow-up plan has been documented for the patient 02/18/2025 11:54 AM EDT documented as of this encounter Care Teams Glaze Supervisor Relationship Specialty Start Date End Date Pcp, Angelic [address] [place] [address] PCP - General Family Medicine 02/06/25 documented as of this encounter
--- OUTSIDE RECORDS SUMMARY | 2025-03-03 12:56 | XMS_ITS | Encounter Summary ---
Author Organization Healthcare Address [address] [place] [address] Care Team Providers Care Residential Leasing Manager Name Role Phone Pcp, No Primary [...] on filedocumented in this encounter Care Teams Residential Leasing Manager Relationship Specialty Start Date End Date Pcp, Angelic [address] [place] [address] PCP - General Family Medicine 02/06/25 documented as of this encounter
--- OUTSIDE RECORDS SUMMARY | 2025-03-03 12:56 | XMS_ITS | Clinical Summary ---
[facility] Organization [facility] Address [address] [place] [address] Care Team Providers Care Aircraft Armament Mechanic Name Role Phone Provider, No Known Primary Care Provider Unavail able Social History Tobacco Use Types Packs/Day Years Used Date Smoking Tobacco: Never Assessed Abuse Screen Answer Date Recorded Unsafe at Home or Work/School Not on file Feels Threatened by Someone? Not on file Does Anyone Keep You from Co ntacting Others or Doint Things Outside the Home? Not on file 05/19/2023 Physical Sign of Abuse Present Not on file 1 Housing Stability Answer Date Recorded Current Living Arrangements Not on file 05/07 Potentially Unsafe Housing Conditions Not on edward e 05/19/2023 Family and Community Support Answer Quinn e Recorded Help with Day-to-Day Activities Not on file 05/19/2023 Lonely or Isolated Not on file 05/19/2023 Employment Answer Date Recorded Do you want help finding or keeping work or a arnel b? Not on file 05/19/2023 Disabilities Answer Date Recorded Concentrating, Remembering, or Making Decisions Difficulty Not on file 05/19/2023 Doing Errands Independently Difficulty Not on fi le 05/19/2023 Education Answer Date Recorded Help with school or training? Not on file Preferred Language Not on file 05/19/2023 Sex and Gender Information Value Date Recorded Sex Assigned at Not on file Legal Sex Male 11:24 AM EDT Gender Identity Not on file Sexual Orientation Not on file Plan of Treatment Health Maintenance Due Date Last Done Comments TDAP/TD VACCINES (1 - Tdap) 1979 COLOGUARD 11/26/2003 COLON CANCER SCREENING 5 YEAR SIGMOIDOSCOPY 11/26/2003 COLONOSCOPY 11/26/2003 COLORECTAL CANCER SCREENING 11/26/2003 CT COLONOGRAPHY 11/26/2003 FECAL OCCULT BLOOD TEST 11/26/2003 FIT Testing (1 year) 11/26/2003 Pneumococcal Vaccine 50+ (1 of 1 - PCV) 2008 ZOSTER VACCINE (1 of 2) 2008 ANNUAL PHYSICAL 12/29/2022 HEPATITIS C SCREENING 12/29/2022 AAA SCREEN ONCE 11/26/2023 COVID-19 Vaccine ( season) 2024 INFLUENZA VACCINE 05/07/2025 Insurance Care Teams Aircraft Armament Mechanic Relationship Specialty Start Date End Date Provider, No Known [facility] [place] [address] PCP - General 12/27/22
== END 2025-02-27 23:59 | disposition home or self-care (01) ==
LOC: LAB.DROPOF 03-03 12:50
PROVIDERS: PCP Nurse Practitioner Family; Visit Provider Nurse Practitioner Family
DX: E78.5 Hyperlipidemia, unspecified (principal); Z76.89 Persons encountering health services in other specified circumstances; I10 Essential (primary) hypertension; I27.20 Pulmonary hypertension, unspecified; Z11.59 Encounter for screening for other viral diseases; Z11.4 Encounter for screening for human immunodeficiency virus [HIV]; E53.8 Deficiency of other specified B group vitamins; E55.9 Vitamin D deficiency, unspecified; E61.1 Iron deficiency; R41.3 Other amnesia; G47.33 Obstructive sleep apnea (adult) (pediatric)
CPT/HCPCS: 80053; 80061; 81001; 82306; 82607; 82728; 83540; 83550; 84403; 84439; 84443; 85025; 86803; 87389